=== PATIENT | male | born 1975 | race Caucasian/White ===

== ENCOUNTER 2024-04-21 19:06 | Observation (INO) | payer OTHER, SELFPAY ==
[2024-04-21 19:31] VITALS: BP 122/75; PULSE 73; RESP 16; TEMP 36.6; O2SAT 97; BMI 33.3
[2024-04-21 21:14] LABS: Basophils % 0.2 %; Eosinophils % 0.1 %; Hematocrit 44.8 % (37-53); Mean Corpuscular HGB Conc 33.9 g/dL (30-55); Mean Corpuscular Hemoglobin 30.6 pg (27-33); Mean Corpuscular Volume 90.3 fl (82-101); Mean Platelet Volume 9.3 fL (7.4-10.4); Monocytes # 0.5 10^3/uL (0.2-0.9); Monocytes % 5.8 %; Neutrophils # 7.11 10^3/uL (1.8-7.7); Neutrophils % 81.8 %; Nucleated Red Blood Cells % 0 %; Platelet Count 296 10^3/cmm (157-399); Red Blood Count 4.96 10^6/uL (3.85-5.65); Red Cell Distribution Width 12.7 % (12.1-15.1); White Blood Count 8.69 10^3/uL (3.29-11.43)
[2024-04-21 21:15] VITALS: BP 125/84; PULSE 66; RESP 18; O2SAT 97
--- NOTE | 2024-04-21 21:25 | CTR_ITS ---
PROCEDURE INFORMATION: Exam: CTA Head With Contrast, Arteriography Exam date and time: 04/21/2024 9:49 PM Age: 48 years old Clinical indication: Vertigo; Additional info: Dizzy TECHNIQUE: Imaging protocol: Computed tomographic angiography of the head with contrast. Exam focused on the arteries. 3D rendering (Not supervised by radiologist): MIP and/or 3D reconstructed images were created by the technologist. Radiation optimization: All CT scans at this facility use at least one of these dose optimization techniques: automated exposure control; mA and/or kV adjustment per patient size (includes targeted exams where dose is matched to clinical indication); or iterative reconstruction. Contrast material: [id number]; Contrast volume: 100 ml; Contrast route: INTRAVENOUS (IV); COMPARISON: CT head wo con* [id number] 04/21/2024 9:49 PM RADIATION DOSE METRICS: Total DLP (mGy-cm): 451.5 FINDINGS: ANTERIOR CIRCULATION: Right internal carotid artery: Intracranial segment is patent with no significant stenosis. No aneurysm. Right middle cerebral artery: No occlusion or significant stenosis. No aneurysm. Right anterior cerebral artery: No occlusion or significant stenosis. No aneurysm. Left internal carotid artery: Intracranial segment is patent with no significant stenosis. No aneurysm. Left middle cerebral artery: No occlusion or significant stenosis. No aneurysm. Left anterior cerebral artery: No occlusion or significant stenosis. No aneurysm. POSTERIOR CIRCULATION: Right vertebral artery: No occlusion or significant stenosis. No aneurysm. Left vertebral artery: No occlusion or significant stenosis. No aneurysm. Basilar artery: No occlusion or significant stenosis. No aneurysm. Right posterior cerebral artery: No occlusion or significant stenosis. No aneurysm. Left posterior cerebral artery: No occlusion or significant stenosis. No aneurysm. Brain: No definite mass, mass effect, or midline shift. Cerebral ventricles: No ventriculomegaly. Bones/joints: Unremarkable. No acute fracture. Soft tissues: Unremarkable. PROCEDURE INFORMATION: Exam: CTA Neck With Contrast Exam date and time: 04/21/2024 9:49 PM Age: 48 years old Clinical indication: Vertigo; Additional info: Dizzy TECHNIQUE: Imaging protocol: Computed tomographic angiography of the neck with contrast. Exam focused on the cervical segments of the vasculature. 3D rendering (Not supervised by radiologist): MIP and/or 3D reconstructed images were created by the technologist. Radiation optimization: All CT scans at this facility use at least one of these dose optimization techniques: automated exposure control; mA and/or kV adjustment per patient size (includes targeted exams where dose is matched to clinical indication); or iterative reconstruction. Contrast material: [id number]; Contrast volume: 100 ml; Contrast route: INTRAVENOUS (IV); COMPARISON: CT head wo con* [id number] 04/21/2024 9:49 PM RADIATION DOSE METRICS: Total DLP (mGy-cm): 0 FINDINGS: Right common carotid artery: No stenosis. No dissection or occlusion. Right internal carotid artery: No stenosis of the extracranial segment. No dissection or occlusion. Right external carotid artery: No occlusion or stenosis of the origin. Left common carotid artery: No stenosis. No dissection or occlusion. Left internal carotid artery: No stenosis of the extracranial segment. No dissection or occlusion. Left external carotid artery: No occlusion or stenosis of the origin. Right vertebral artery: No stenosis. No dissection or occlusion. Left vertebral artery: No stenosis. No dissection or occlusion. Soft tissues: Normal. No significant soft tissue swelling. Bones/joints: No acute fracture. CT/CT angio headneck* [id number] IMPRESSION: No large vessel stenosis or occlusion. IMPRESSION: No stenosis or occlusion. REFERENCES: NASCET CRITERIA. The degree of stenosis in the cervical segment of the internal carotid artery is based on NASCET criteria. Normal is no stenosis. Mild is less than 50% stenosis. Moderate is 50-69% stenosis. Severe is 70% to 99% stenosis. Total occlusion is no detectable patent lumen.
--- NOTE | 2024-04-21 21:26 | CTR_ITS ---
PROCEDURE INFORMATION: Exam: CT Head Without Contrast Exam date and time: 04/21/2024 9:49 PM Age: 48 years old Clinical indication: Dizziness; Additional info: Dizzy TECHNIQUE: Imaging protocol: Computed tomography of the head without contrast. Radiation optimization: All CT scans at this facility use at least one of these dose optimization techniques: automated exposure control; mA and/or kV adjustment per patient size (includes targeted exams where dose is matched to clinical indication); or iterative reconstruction. COMPARISON: CT angio headneck* [id number] 04/21/2024 9:49 PM RADIATION DOSE METRICS: Total DLP (mGy-cm): 1121.89 FINDINGS: Brain: No hemorrhage. No mass effect or midline shift. No acute transcortical infarct. Cerebral ventricles: No ventriculomegaly. Paranasal sinuses: Visualized sinuses are unremarkable. No fluid levels. Mastoid air cells: Visualized mastoid air cells are well aerated. Bones: Unremarkable. No acute fracture. Soft tissues: Unremarkable. CT/CT head wo con* [id number] IMPRESSION: No acute intracranial findings.
[2024-04-21 21:36] LABS: Alanine Aminotransferase 36 U/L (0-41); Albumin Level 4.6 g/dL (3.5-5.2); Alkaline Phosphatase 60 U/L (40-130); Anion Gap 13.7 (5-19); Aspartate Amino Transferase 22 U/L (0-40); Blood Urea Nitrogen 12 mg/dL (6-20); Calcium 8.9 mg/dL (8.5-10.5); Carbon Dioxide 25 mmol/L (22-29); Chloride 99 mmol/L (98-107); Creatinine Clr Calc Pharmacy 130.6914; Globulin 2.8 g/dL (1.3-4.6); Glomerular Filtration Rate 119.4 mL/min (90-130); Glucose 122 mg/dL (65-115); Osmolality Calculated 279 mOsm/kg (285-295); Potassium 3.7 mmol/L (3.5-5.1); Sodium 134 mmol/L (136-145); Total Bilirubin 0.5 mg/dL (0.15-1.2); Total Protein 7.4 g/dL (6.6-8.7)
[2024-04-21 21:43] LABS: INR 0.89 (0.8-1.2); Partial Thromboplastin Time 21.4 SECONDS (23.9-36.7)
[2024-04-21] MEDS: iohexol 350 mg/mL 500 mL Btl (per mL) IV (21:50)
[2024-04-21] MEDS: LORazepam 2 mg/mL INJ 1 mL 1.5 MG IVP (22:00)
[2024-04-21 22:01] VITALS: BP 148/89; PULSE 76; RESP 18; O2SAT 98
[2024-04-21] MEDS: sodium chloride 0.9% 1,000 ML 999 ML IV (22:26)
[2024-04-21 22:30] VITALS: BP 117/81; PULSE 70; O2SAT 97
[2024-04-21 23:53] LABS: Bacteria Urine None Seen /hpf; Hyaline Casts Urine 0-4 /lpf; RBC Urine 0-2 /hpf (0-2); Squamous Epithelial Cell Urine 0-5 /hpf (0-5); WBC Urine 0-5 /hpf (0-5)
[2024-04-22] VITALS (16 sets, daily range): BP systolic 114–144; BP diastolic 70–90; PULSE 62–113; RESP 16–19; TEMP 36.4–36.8; O2SAT 90–98
[2024-04-22 00:14] LABS: Urine Appearance Clear (CLEAR); Urine Color Yellow (Yellow); pH Urine 7 (5-7)
[2024-04-22 00:15] LABS: Add Urine Culture? No; Add Urine Microscopic? YES; Bilirubin Urine Neg (Negative); Blood Urine Neg (Negative); Glucose Urine UA Norm (Normal); Ketones Urine Negative (Negative); Leukocyte Esterase Urine Negative (Negative); Nitrate Urine Negative (Negative); Protein Urine Neg (Negative); Specific Gravity, Urine 1.066 (1.005-1.030)
[2024-04-22] MEDS: aspirin 325 mg Tablet 162 MG PO (01:10)
--- NOTE | 2024-04-22 01:15 | P.HP_ITS ---
Providers/Chief Complaint 2 Chief Complaint: Dizzy\V History of Present Illness 48-year-old gentleman with history of hypertension, hyperlipidemia, occasionally smoking cigar, overweight, with cardiovascular history in his father, reporting night before last at 2 AM in the morning on 04/21 after getting up to the restroom he had developed the sensation of everything spinning around him, has been nauseated due to this, is also had inability to ambulate. Denies any prior such episodes. Denies any fever chills, no respiratory or other symptoms. No ear pain drainage, hearing loss or tinnitus. Review of Systems 2 Const: Denies: fever(s), chills, body aches or malaise ENMT: Denies: throat pain, oral sores or ear or mastoid pain Card: Denies: chest pain, edema, pre-syncope or dyspnea on exertion Resp: Denies: dyspnea, productive cough, change in phlegm color or hemoptysis GI: Denies: abdominal pain, nausea, vomiting, diarrhea, constipation, hematochezia or melena : Denies: flank pain, difficulty urinating, urinary frequency or hematuria Musc: Denies: back pain, joint swelling or joint redness Skin/Breast: Denies: rash or new lesions Neuro: Denies: headache(s), numbness in extremities, weakness in extremities, dizziness, confusion or seizure-like activity Endo: Denies: polyuria or polydipsia Medications/Allergies Home Medications Medication Instructions Recorded Confirmed Last Taken Type fenofibrate 54 mg tablet 54 mg PO DAILY 04/22/24 04/22/24 Unknown History losartan 50 mg tablet 50 mg PO DAILY 04/22/24 04/22/24 Unknown History lovastatin 40 mg tablet 40 mg PO BEDTIME 04/22/24 04/22/24 Unknown History Allergies Allergy/AdvReac Type Severity Reaction Status Date / Time No Known Allergies Allergy Verified 04/21/24 19:38 PFSH Acute 2 PFSH: Medical History Dural tear HLD (hyperlipidemia) HTN (hypertension) Surgical History H/O Spinal surgery Social History Smoking and tobacco/nicotine status: current some day tobacco/nicotine user cigars Alcohol intake: current Alcohol intake frequency: few times a month Substance/Drug Use: never Vitals/I&O/Wt Last Vital Signs Temp 97.9 F 04/21/24 19:31 Pulse 76 04/21/24 22:01 Resp 18 04/21/24 22:01 BP 148/89 04/21/24 22:01 Pulse Ox 98 04/21/24 22:01 O2 Del Method Room Air 04/21/24 22:01 04/21/24 04/21/24 04/22/24 14:59 22:59 06:59 Intake Total 1000 / 1000 Balance 1000 / 1000 Weight last 48 hrs Weight 90.718 kg Physical Exam 2 Const: COMMON NORMALS: patient oriented x3 and alert GENERAL APPEARANCE: c ooperative ORIENTATION/CONSCIOUSNESS: Yes awake HENMT: COMMON NORMALS: oropharynx normal Neck/C-Spine: COMMON NORMALS: no JVD Resp: COMMON NORMALS: normal respiratory effort and clear to auscultation bilaterally AUSCULTATION: clear to auscultation bilaterally Cardio: COMMON NORMALS: no JVD, regular rhythm, S1 normal heart sound present, S2 normal heart sound present and No murmurs present (Cardio) RHYTHM: regular rhythm HEART SOUNDS: S1 normal heart sound present and S2 normal heart sound present GI: COMMON NORMALS: Normal to inspection, nondistended, normoactive bowel sounds present, Soft to palpation and non-tender PALPATION: Yes Soft to palpation Extremity: COMMON NORMALS: no joint enlargement and no pedal edema Neuro: COMMON NORMALS: patient oriented x3 and moves all extremities S ENSORIUM/ORIENTATION: Yes alert OTHER: He is awake, alert, following directions, no dysarthria or aphasia. No facial droop. No difficulties with horizontal tracking. Denies vertigo on extremes of gaze. No difficulty with FNF. Visual edwards full confrontation, no visual extinction. Sensory exam symmetrical, without sensory extinction. No upper or lower extremity drift. I do not know what reversible nystagmus on exam. Head impulse test negative. Test of skew negative. Daniel[place]-Hallpike positive on the left. Skin: COMMON NORMALS: no rashes or lesions noted GENERAL SKIN EXAM: no rashes or lesions noted Data 04/21/24 21:03 04/21/24 21:03 A&P Assessment and plan (1) Vertigo: Vertigo since overnight last night at 2 AM on 04/21, no otic complaints or symptoms. No sign of acute infection. Reviewed vitals, CBC, INR, CMP, UA, head CT, CTA head neck, ER note, discussed with ER provider. He does have risk factors of CVA including hypertension, hyperlipidemia, smokes cigars, overweight. On neurologic examination no other focal abnormalities, negative test of skew, head impulse, I do not note reversible nystagmus. Does appear to have positive [place]-Hallpike on the left. Possible BPPV, however, with risk factors of CVA would benefit from assessment by MRI to exclude posterior circulation CVA. Requested. He has had quite a bit of difficulty with ambulation requiring two-person assist this evening on attempt. If symptoms not improving may require to stay till Tuesday for PT assessment and repositioning maneuvers. Otherwise if MRI can be obtained and without acute CVA likely can discharge home with outpatient follow- up. Continue statin. For now started on aspirin. In case of finding of CVA would need additional workup for further risk factors. (2) Cardiovascular risk factor: Including hypertension, hyperlipidemia, overweight, smoking cigars. Plan HTN: Monitor blood pressure, continue losartan HLD: Continue lovastatin, fenofibrate Smoking: Cigars. Encourage cessation. Overweight: Would benefit from lifestyle modification and follow-up with PCP. Attestations 2 Medical Necessity Statement*: Place in observation for additional assessment management of severely symptomatic vertigo, unable to ambulate requiring two-person assist, further assessment for possible posterior circulation CVA due to risk factors. and High MDM includes number and complexity of problems actively addressed during encounter and amount and/or complexity of data reviewed/ordered [ previous or external records, resulted lab(s)/test(s), ordered lab(s)/test(s) and other healthcare professional discussion] as documented Diagnoses Vertigo R42 Cardiovascular risk factor Z91.89
--- NOTE | 2024-04-22 01:44 | MRR_ITS ---
PROCEDURE INFORMATION: Exam: MR Head Without Contrast Exam date and time: 04/22/2024 8:35 AM Age: 48 years old Clinical indication: Dizziness and other: Vomiting; Patient HX: HX of lumbar fusion with dural tear 2011; Additional info: Assess for post circ CVA TECHNIQUE: Imaging protocol: Magnetic resonance imaging of the head without contrast. COMPARISON: CT angio headneck* [id number] 04/21/2024 9:49 PM FINDINGS: Brain: Normal. No acute infarct. No hemorrhage. No significant white matter disease. No edema. Cerebral ventricles: Normal. No ventriculomegaly. Bones: Unremarkable. Paranasal sinuses: Normal as visualized. No acute sinusitis. Mastoid air cells: Normal as visualized. No mastoid effusion. Orbital cavities: Unremarkable. Soft tissues: Unremarkable. MR/MR head wo con* [id number] IMPRESSION: No acute findings.
[2024-04-22 02:02] LABS: Chol HDL Ratio 4.79 mg/dL (1.0-5.00); Cholesterol 182 mg/dL (0-200); HDL Cholesterol 38 mg/dL (60-100); LDL Cholesterol Calculated 108 mg/dL (50-129); LDL HDL Ratio 2.84 RATIO (0.00-3.22); Triglycerides 180 mg/dL (0-150)
[2024-04-22 02:05] LABS: Estmated Average Glucose 120; Hemoglobin A1C 5.8 % (4.0-6.0)
[2024-04-22] MEDS: enoxaparin 40 mg/0.4 mL Syringe SUBCUT (02:16)
--- NOTE | 2024-04-22 07:17 | W.ED.DIZZY ---
HPI - Dizziness General: Chief Complaint: Dizziness Stated Complaint: Dizzy\V\ Time Seen by Provider: 04/21/24 21:08 History of Present Illness: HPI Narrative: 48-year-old male who awoke around 2 or 3 AM in the morning with vertiginous symptoms while getting up to urinate. They seem to improve after he laid back down. He developed them all day, though, whenever he change position. As long as he lies flat, he has essentially no symptoms. With movement, especially getting up, he has significant vertigo. He does not describe this as a nearly passing out episode, but more room spinning dizziness with nausea and vomiting that is significantly severe. Related Data Home Medications Medication Instructions Recorded Confirmed fenofibrate 54 mg tablet 54 mg PO DAILY 04/22/24 04/22/24 losartan 50 mg tablet 50 mg PO DAILY 04/22/24 04/22/24 lovastatin 40 mg tablet 40 mg PO BEDTIME 04/22/24 04/22/24 Allergies Allergy/AdvReac Type Severity Reaction Status Date / Time No Known Allergies Allergy Verified 04/21/24 19:38 [facility] PFSH: Medical History Dural tear HLD (hyperlipidemia) HTN (hypertension) Surgical History H/O Spinal surgery Social History Smoking and tobacco/nicotine status: current some day tobacco/nicotine user cigars Alcohol intake: current Alcohol intake frequency: few times a month Substance/Drug Use: never Physical Exam Const: COMMON NORMALS: no acute distress, patient oriented x3 and alert GENERAL APPEARANCE: cooperative; not ill appearing and not frail appearing HENMT: COMMON NORMALS: normocephalic, atraumatic and Normal external nose present HEAD & SCALP: normocephalic and atraumatic FACE & SINUS: normal facial exam and face symmetric NOSE: Normal external nose present Eye: COMMON NORMALS: Equal, round and reactive pupils present and EOMs intact bilaterally PUPIL: Yes Equal, round and reactive pupils present Neck/C-Spine: GENERAL: Yes trachea midline Chest: CHEST: Yes Symmetrical chest wall rise Resp: COMMON NORMALS: normal respiratory effort, No retractions, No use of accessory muscles and clear to auscultation bilaterally AUSCULTATION: clear to auscultation bilaterally Cardio: COMMON NORMALS: regular rate and regular rhythm RATE: regular rate RHYTHM: regular rhythm GI: COMMON NORMALS: Normal to inspection, nondistended, normoactive bowel sounds present Extremity: COMMON NORMALS: no pedal edema Neuro: CAROL COMA SCALE: document GCS findings Carol coma scale eye opening: Spontaneous [place] coma scale verbal response: Orientated Carol coma scale motor response: Obey commands [place] coma scale total score: 15 COMMON NORMALS: patient oriented x3 SENSORIUM/ORIENTATION: Yes alert CRANIAL NERVES: Yes CN normal except as noted COORDINATION/BALANCE: epiodl-nf-deai test normal, jorl-mx-svpc test normal and sways with eyes open SPEECH: speech normal GAIT: Yes Ataxic gait present SENSORY EXAM: Yes extremities (intact) MOTOR EXAM: Pronator motor function not present, no tremor noted and Normal motor muscle tone present throughout COORDINATION: [id number]-js-[id number] test normal and zrmk-qd-azia test normal Psych: COMMON NORMALS: speech normal SPEECH: Yes normal speech Skin: COMMON NORMALS: no rashes or lesions noted GENERAL SKIN EXAM: no rashes or lesions noted Course Vital Signs: Vital signs: Vital Signs Temperature 98.0 F 04/22/24 15:41 Pulse Rate 77 04/22/24 15:42 Respiratory Rate 18 04/22/24 15:41 Blood Pressure 114/70 04/22/24 15:42 Pulse Oximetry 95 04/22/24 15:41 Oxygen Delivery Me thod Room Air 04/22/24 15:41 MDM - Dizziness Medical Decision Making Head CT with CTA were both negative. Ativan seemed to help his symptoms some. His other laboratory is not remarkable. When trying to walk the patient, he became quite dizzy with vertigo symptoms, and had to sit back down. Because of this, we will observe the patient. Spoke with the hospitalist, he recommends MRI of possible, continued fluid support, etc. Will see the patient. Lab Data 04/21/24 21:03 04/21/24 21:03 Radiology Impressions Head/Neck CTA 04/21/24 21:25 IMPRESSION: No large vessel stenosis or occlusion. IMPRESSION: No stenosis or occlusion. REFERENCES: NASCET CRITERIA. The degree of stenosis in the cervical segment of the internal carotid artery is based on NASCET criteria. Normal is no stenosis. Mild is less than 50% stenosis. Moderate is 50-69% stenosis. Severe is 70% to 99% stenosis. Total occlusion is no detectable patent lumen. Head CT 04/21/24 21:26 IMPRESSION: No acute intracranial findings. Head MRI 04/22/24 01:44 IMPRESSION: No acute findings. Laboratory Results WBC 8.69 10^3/uL (3.29-11.43) 04/21/24 21:03 RBC 4.96 10^6/uL (3.85-5.65) 04/21/24 21:03 Hgb 15.20 g/dL (11.27-16.99) 04/21/24 21:03 Hct 44.8 % (37-53) 04/21/24 21:03 MCV 90.3 fl (82-101) 04/21/24 21:03 MCH 30.6 pg (27-33) 04/21/24 21:03 MCHC 33.9 g/dL (30-55) 04/21/24 21:03 RDW 12.7 % (12.1-15.1) 04/21/24 21:03 Plt Count 296 10^3/cmm (157-399) 04/21/24 21:03 MPV 9.3 fL (7.4-10.4) 04/21/24 21:03 Neut % (Auto) 81.8 % 04/21/24 21:03 Lymph % (Auto) 12.0 % 04/21/24 21:03 Alfalfa % (Auto) 5.8 % 04/21/24 21:03 Eos % (Auto) 0.1 % 04/21/24 21:03 Baso % (Auto) 0.2 % 04/21/24 21:03 Neut # (Auto) 7.11 10^3/uL (1.8-7.7) 04/21/24 21:03 Lymph # (Auto) 1.0 10^3/uL (0.8-4.8) 04/21/24 21:03 Alfalfa # (Auto) 0.5 10^3/uL (0.2-0.9) 04/21/24 21:03 Eos # (Auto) 0.0 10^3/uL (0.0-0.8) 04/21/24 21:03 Baso # (Auto) 0.0 10^3/uL (0.0-0.1) 04/21/24 21:03 Nucleated RBC % (auto) 0 % 04/21/24 21:03 Nucleated RBCs # 0.0 /100WBC 04/21/24 21:03 PT 12.30 SECONDS (12.1-14.9) 04/21/24 21:03 INR 0.89 (0.8-1.2) 04/21/24 21:03 APTT 21.4 SECONDS (23.9-36.7) L 04/21/24 21:03 Sodium 134 mmol/L (136-145) L 04/21/24 21:03 Potassium 3.7 mmol/L (3.5-5.1) 04/21/24 21:03 Chloride 99 mmol/L (98-107) 04/21/24 21:03 Carbon Dioxide 25 mmol/L (22-29) 04/21/24 21:03 Anion Gap 13.7 (5-19) 04/21/24 21:03 BUN 12 mg/dL (6-20) 04/21/24 21:03 Creatinine 0.7 mg/dL (0.7-1.2) 04/21/24 21:03 GFR Calculation 119.4 mL/min (90-130) 04/21/24 21:03 Glucose 122 mg/dL (65-115) H 04/21/24 21:03 Estimat Average Glucose 120 04/21/24 21:03 Hemoglobin A1c 5.8 % (4.0-6.0) 04/21/24 21:03 Calculated Osmolality 279 mOsm/kg (285-295) L 04/21/24 21:03 Calcium 8.9 mg/dL (8.5-10.5) 04/21/24 21:03 Total Bilirubin 0.5 mg/dL (0.15-1.2) 04/21/24 21:03 AST 22 U/L (0-40) 04/21/24 21:03 ALT 36 U/L (0-41) 04/21/24 21:03 Alkaline Phosphatase 60 U/L (40-130) 04/21/24 21:03 Total Protein 7.4 g/dL (6.6-8.7) 04/21/24 21:03 Albumin 4.6 g/dL (3.5-5.2) 04/21/24 21:03 Globulin 2.8 g/dL (1.3-4.6) 04/21/24 21:03 Triglycerides 180 mg/dL (0-150) H 04/21/24 21:03 Cholesterol 182 mg/dL (0-200) 04/21/24 21:03 LDL Cholesterol, Calc 108 mg/dL (50-129) 04/21/24 21:03 HDL Cholesterol 38 mg/dL (60-100) L 04/21/24 21:03 LDL/HDL Ratio 2.84 RATIO (0.00-3.22) 04/21/24 21:03 Cholesterol/HDL Ratio 4.79 mg/dL (1.0-5.00) 04/21/24 21:03 Urine Color Yellow (Yellow) 04/21/24 23:24 Urine Appearance Clear (CLEAR) 04/21/24 23:24 Urine pH 7 (5-7) 04/21/24 23:24 Ur Specific [place] 1.066 (1.005-1.030) H 04/21/24 23:24 Urine Protein Neg (Negative) 04/21/24 23:24 Urine Glucose (UA) Norm (Normal) 04/21/24 23:24 Urine Ketones Negative (Negative) 04/21/24 23:24 Urine Blood Neg (Negative) 04/21/24 23:24 Urine Nitrate Negative (Negative) 04/21/24 23:24 Urine Bilirubin Neg (Negative) 04/21/24 23:24 Urine Urobilinogen 1.0 mg/dL (Negative) 04/21/24 23:24 Ur Leukocyte Esterase Negative (Negative) 04/21/24 23:24 Urine RBC 0-2 /hpf (0-2) 04/21/24 23:24 Urine WBC 0-5 /hpf (0-5) 04/21/24 23:24 Ur Squamous Epith Cells 0-5 /hpf (0-5) 04/21/24 23:24 Amorphous Sediment Not Reportable 04/21/24 23:24 Urine Bacteria None seen /hpf (NONE) 04/21/24 23:24 Hyaline Casts 0-4 /lpf H 04/21/24 23:24 All radiology interpretation(s) finalized by discharge Discharge Plan Discharge Patient Disposition: Admitted As Inpatient Admit Provider: Ronald Harrington Clinical Impression: Vertigo Condition: Stable Coding Level of Care Code ED Rubber Flap Tuber Machine Operator for Jacob John
[2024-04-22] MEDS: fenofibrate 48 mg Tablet PO (09:07)
[2024-04-22] MEDS: losartan 50 mg Tablet PO (09:07)
[2024-04-22] MEDS: aspirin 81 mg EC Tablet 162 MG PO (09:08)
--- NOTE | 2024-04-22 10:33 | USCV_ITS ---
Marcelino Bhakta Age: 48 Gender: M : 1975 Exam Date: 04/22/2024 18:05 Ordering Phys: Mina Santamaria MD Technologist: Arslan Preston [place] [facility] [place]: cva BP: 114 / 70 HR: Rhythm: Sinus Technical Quality: Adequate MEASUREMENTS (Male / Female) Normal Values 2D ECHO LV Diastolic Diameter PLAX 4.6 cm 4.2 - 5.9 / 3.9 - 5.3 cm IVS Diastolic Thickness 1.2 cm 0.6 - 1.0 / 0.6 - 0.9 cm IVS Systolic Thickness 1.8 cm LVPW Diastolic Thickness 1.8 cm 0.6 - 1.0 / 0.6 - 0.9 cm LVPW Systolic Thickness 1.5 cm LVOT Diameter 2.0 cm LV Ejection Fraction 2D Teich 82.7 % LV Ejection Fraction MOD 4C 65.3 % LV Ejection Fraction MOD 2C 72.3 % LV Ejection Fraction 2C AL 71.2 % LA Diameter 3.4 cm RA Systolic Volume 4C AL 24.8 ml RA Systolic Volume 4C MOD 24.7 ml LA Sys Volume AL 35.1 cm cubed LA Sys Volume Index AL 16.6 cm cubed/m squared Aorta at Sinotubular Diameter 2.4 cm IVC Diameter 2.0 cm M-MODE LA Ao Ratio MM 1.1 AV Cusp Separation MM 1.8 cm FINDINGS Left Ventricle Left ventricle is normal size. LV systolic function is normal with EF 55 to 60%. No regional wall motion abnormalities are seen. Right Ventricle Normal in size and function Right Atrium Normal in size Left Atrium Normal in size Mitral Valve Structurally normal mitral valve. Aortic Valve Aortic valve is thickened. Tricuspid Valve Grossly normal Pulmonic Valve Not well visualized Pericardium Normal Aorta Normal in size IVC Appears to be normal CONCLUSIONS LV systolic function is normal with EF of 55-60% Bubble study is of limited quality because of imaging quality. Grossly no significant intracardiac shunting seen. Andrés Nunez MD (Electronically Signed) Final Date: 23 April 2024 18:00 S
--- NOTE | 2024-04-22 15:23 | P.PN_ITS ---
Subjective 2 Subjective: Patient was seen this morning, he is alert oriented x 3, following all commands, he really denies any significant dizziness with changing head position it is more dizziness when getting up and ambulating, he tells me he is quite unsteady on his feet, he tells me that last night, when he tried to get up out of bed he was very unsteady on his feet, leaning more towards the right, stumbling, felt very off balance did report more dizziness than vertigo, felt nauseous, had episodes of vomiting, no fevers, chills, denies ear ringing, does report recent history of issues with high blood pressure Vitals/I&O/Wt Last Vital Signs Temp 98.1 F 04/22/24 11:23 Pulse 90 04/22/24 11:58 Resp 17 04/22/24 11:23 BP 119/75 04/22/24 11:58 Pulse Ox 95 04/22/24 11:23 O2 Del Method Room Air 04/22/24 11:23 04/22/24 04/22/24 04/22/24 06:59 14:59 22:59 Intake Total 1240 / 1240 480 / 480 Balance 1240 / 1240 480 / 480 Weight last 48 hrs Weight 93.939 kg Weight 90.804 kg Weight 90.718 kg Physical Exam 2 Const: COMMON NORMALS: no acute distress and patient oriented x3 O RIENTATION/CONSCIOUSNESS: Yes awake, Yes oriented to person, Yes oriented to place and Yes oriented to time Eye: COMMON NORMALS: Equal, round and reactive pupils present and EOMs intact bilaterally PUPIL: Yes Equal, round and reactive pupils present Resp: COMMON NORMALS: normal respiratory effort, No retractions, No use of accessory muscles and clear to auscultation bilaterally AUSCULTATION: clear to auscultation bilaterally Cardio: COMMON NORMALS: regular rate, regular rhythm, S1 normal heart sound present and S2 normal heart sound present RATE: regular rate RHYTHM: r egular rhythm HEART SOUNDS: S1 normal heart sound present and S2 normal heart sound present GI: COMMON NORMALS: Normal to inspection, nondistended, normoactive bowel sounds present and non-tender Extremity: COMMON NORMALS: no pedal edema Neuro: COMMON NORMALS: patient oriented x3, CN's II-XII intact bilaterally, moves all extremities, no focal motor deficits and no sensory deficits noted SENSORIUM/ORIENTATION: Yes oriented to person, Yes oriented to place and Yes oriented to time OTHER: Creatinine was abnormal on the right, Upon standing, tends to lean towards the right, does report unsteadiness Psych: COMMON NORMALS: mental status grossly normal Data 04/21/24 21:03 04/21/24 21:03 A&P Assessment and plan (1) Cardiovascular risk factor: Including hypertension, hyperlipidemia, overweight, smoking cigars. (2) Dizziness: - Does have features of benign positional vertigo -But given his sudden onset of symptoms, his positive cerebellar signs, he is unsteadiness with ambulation, highly suspicious for posterior circulation stroke -CT head no acute findings -CTA head and neck, no large vessel occlusion or stenosis -MRI brain no acute findings -No sniffing electrolyte abnormalities -Telemetry monitoring -Cardiac echo bubble study -Will continue to monitor ins patient -IV fluids -Permissive hypertension -Continue aspirin, statin -PT OT Plan HTN: Monitor blood pressure, continue losartan HLD: Continue lovastatin, fenofibrate Smoking: Cigars. Encourage cessation. Overweight: Would benefit from lifestyle modification and follow-up with PCP. Attestations 2 Medical Necessity Statement*: Patient requires hospitalization, inpatient, greater than 2 minutes, for concerns for posterior circulation stroke Diagnoses Cardiovascular risk factor Z91.89 Dizziness R42
[2024-04-22] MEDS: sodium chloride 0.9% 1,000 ML 75 ML IV (15:33)
[2024-04-22] MEDS: atorvastatin 40 mg Tablet 20 MG PO (20:09)
[2024-04-23] VITALS (7 sets, daily range): BP systolic 116–149; BP diastolic 71–90; PULSE 58–78; RESP 16–19; TEMP 36.6–36.7; O2SAT 94–97
[2024-04-23] MEDS: enoxaparin 40 mg/0.4 mL Syringe SUBCUT (01:21)
[2024-04-23] MEDS: sodium chloride 0.9% 1,000 ML 75 ML IV (04:28)
[2024-04-23 04:37] LABS: Basophils # 0.1 10^3/uL (0.0-0.1); Basophils % 0.9 %; Eosinophils # 0.1 10^3/uL (0.0-0.8); Lymphocytes # 2.3 10^3/uL (0.8-4.8); Lymphocytes % 38.4 %; Mean Corpuscular HGB Conc 33.6 g/dL (30-55); Mean Corpuscular Hemoglobin 30.8 pg (27-33); Mean Corpuscular Volume 91.8 fl (82-101); Mean Platelet Volume 9.5 fL (7.4-10.4); Monocytes # 0.5 10^3/uL (0.2-0.9); Neutrophils # 2.97 10^3/uL (1.8-7.7); Neutrophils % 50.5 %; Nucleated Red Blood Cells % 0 %; Platelet Count 258 10^3/cmm (157-399); Red Blood Count 4.25 10^6/uL (3.85-5.65); Red Cell Distribution Width 12.8 % (12.1-15.1); White Blood Count 5.88 10^3/uL (3.29-11.43)
[2024-04-23 04:51] LABS: Estmated Average Glucose 114; Hemoglobin A1C 5.6 % (4.0-6.0)
[2024-04-23 04:58] LABS: Anion Gap 10.7 (5-19); Blood Urea Nitrogen 12 mg/dL (6-20); Calcium 8.4 mg/dL (8.5-10.5); Carbon Dioxide 24 mmol/L (22-29); Chloride 105 mmol/L (98-107); Chol HDL Ratio 5.06 mg/dL (1.0-5.00); Cholesterol 167 mg/dL (0-200); Creatinine Clr Calc Pharmacy 133.3164; Glomerular Filtration Rate 119.4 mL/min (90-130); Glucose 103 mg/dL (65-115); HDL Cholesterol 33 mg/dL (60-100); LDL Cholesterol Calculated 92 mg/dL (50-129); LDL HDL Ratio 2.79 RATIO (0.00-3.22); Osmolality Calculated 282 mOsm/kg (285-295); Potassium 3.7 mmol/L (3.5-5.1); Sodium 136 mmol/L (136-145); Triglycerides 208 mg/dL (0-150)
[2024-04-23] MEDS: fenofibrate 48 mg Tablet PO (08:38)
[2024-04-23] MEDS: aspirin 81 mg EC Tablet 162 MG PO (08:38)
[2024-04-23] MEDS: losartan 50 mg Tablet PO (08:38)
--- NOTE | 2024-04-23 10:48 | P.DS_ITS ---
Discharge Providers Date of Admission: 04/22/24 01:04 Date of Discharge: April 23, 2024 Attending Provider at Admission: Ronald Harrington Attending Provider at Discharge: Mina Santamaria MD Diagnoses at Discharge Discharge Diagnosis (1) Cardiovascular risk factor: Status: Acute (2) Dizziness: Status: Acute Reason for Visit Reason for Visit: Dizzy\V Hospital Course Hospital Course This is a 48-year-old male with a past medical history of hypertension hyperlipidemia, obesity, who presents [facility] due to sudden onset dizziness Patient was admitted for dizziness, unsteadiness, highly suspicious for posterior circulation stroke Dizziness: - Does have features of benign positional vertigo, although no significant symptoms when changing head position -But given his sudden onset of symptoms, his positive cerebellar signs, he is unsteadiness with ambulation, highly suspicious for posterior circulation stroke -CT head no acute findings -CTA head and neck, no large vessel occlusion or stenosis -MRI brain no acute findings -No significant electrolyte abnormalities -Was monitored as inpatient on aspirin, statin, IV fluids, overall his symptomatology improved, continues to have intermittent episodes of unsteadiness, when ambulating, but overall significantly improved -Will discharge him on aspirin, statin, with a close follow-up with neurology as outpatient -Discharged with event monitor with a follow-up with cardiology as outpatient -Advised on to lifestyle modifications, stop smoking -If you were to have any recurrent strokelike symptoms to immediately call 911 Physical Exam Const: COMMON NORMALS: no acute distress and patient oriented x3 Resp: COMMON NORMALS: normal respiratory effort, No retractions, No use of accessory muscles and clear to auscultation bilaterally AUSCULTATION: clear to auscultation bilaterally Cardio: COMMON NORMALS: regular rate, regular rhythm, S1 normal heart sound present and S2 normal heart sound present RATE: regular rate RHYTHM: regular rhythm HEART SOUNDS: S1 normal heart sound present and S2 normal heart sound present GI: COMMON NORMALS: Normal to inspection, nondistended, normoactive bowel sounds present and non-tender Extremity: COMMON NORMALS: no pedal edema Neuro: COMMON NORMALS: patient oriented x3, CN's II-XII intact bilaterally, moves all extremities, no focal motor deficits and no sensory deficits noted Psych: COMMON NORMALS: mental status grossly normal Discharge Data Studies Completed and Pending Completed Studies During Hospitalization Category Date Time Status CT head wo con* [id number] Stat Cat Scan 04/21/24 21:26 Completed CTA head neck [CT angio headneck* [id number]] Stat Cat Scan 04/21/24 21:25 Completed MR head wo con* [id number] Routine MRI 04/22/24 01:44 Completed Pending at discharge Category Date Time Status Basic Metabolic Panel AM LABS Lab 04/24/24 04:00 Ordered Basic Metabolic Panel AM LABS Lab 04/25/24 04:00 Ordered Complete Blood Count w/Auto AM LABS Lab 04/24/24 04:00 Ordered Complete Blood Count w/Auto AM LABS Lab 04/25/24 04:00 Ordered CV. echo lmt wo/w bubble [id number] Routine Ultrasound 04/22/24 10:33 Taken Radiology Impressions Head/Neck CTA 04/21/24 21:25 IMPRESSION: No large vessel stenosis or occlusion. IMPRESSION: No stenosis or occlusion. REFERENCES: NASCET CRITERIA. The degree of stenosis in the cervical segment of the internal carotid artery is based on NASCET criteria. Normal is no stenosis. Mild is less than 50% stenosis. Moderate is 50-69% stenosis. Severe is 70% to 99% stenosis. Total occlusion is no detectable patent lumen. Head CT 04/21/24 21:26 IMPRESSION: No acute intracranial findings. Head MRI 04/22/24 01:44 IMPRESSION: No acute findings. Laboratory Results WBC 5.88 10^3/uL (3.29-11.43) 04/23/24 03:52 RBC 4.25 10^6/uL (3.85-5.65) 04/23/24 03:52 Hgb 13.10 g/dL (11.27-16.99) 04/23/24 03:52 Hct 39.0 % (37-53) 04/23/24 03:52 MCV 91.8 fl (82-101) 04/23/24 03:52 MCH 30.8 pg (27-33) 04/23/24 03:52 MCHC 33.6 g/dL (30-55) 04/23/24 03:52 RDW 12.8 % (12.1-15.1) 04/23/24 03:52 Plt Count 258 10^3/cmm (157-399) 04/23/24 03:52 MPV 9.5 fL (7.4-10.4) 04/23/24 03:52 Neut % (Auto) 50.5 % 04/23/24 03:52 Lymph % (Auto) 38.4 % 04/23/24 03:52 [place] % (Auto) 9.0 % 04/23/24 03:52 Eos % (Auto) 1.0 % 04/23/24 03:52 Baso % (Auto) 0.9 % 04/23/24 03:52 Neut # (Auto) 2.97 10^3/uL (1.8-7.7) 04/23/24 03:52 Lymph # (Auto) 2.3 10^3/uL (0.8-4.8) 04/23/24 03:52 [place] # (Auto) 0.5 10^3/uL (0.2-0.9) 04/23/24 03:52 Eos # (Auto) 0.1 10^3/uL (0.0-0.8) 04/23/24 03:52 Baso # (Auto) 0.1 10^3/uL (0.0-0.1) 04/23/24 03:52 Nucleated RBC % (auto) 0 % 04/23/24 03:52 Nucleated RBCs # 0.0 /100WBC 04/23/24 03:52 PT 12.30 SECONDS (12.1-14.9) 04/21/24 21:03 INR 0.89 (0.8-1.2) 04/21/24 21:03 APTT 21.4 SECONDS (23.9-36.7) L 04/21/24 21:03 Sodium 136 mmol/L (136-145) 04/23/24 03:52 Potassium 3.7 mmol/L (3.5-5.1) 04/23/24 03:52 Chloride 105 mmol/L (98-107) 04/23/24 03:52 Carbon Dioxide 24 mmol/L (22-29) 04/23/24 03:52 Anion Gap 10.7 (5-19) 04/23/24 03:52 BUN 12 mg/dL (6-20) 04/23/24 03:52 Creatinine 0.7 mg/dL (0.7-1.2) 04/23/24 03:52 GFR Calculation 119.4 mL/min (90-130) 04/23/24 03:52 Glucose 103 mg/dL (65-115) 04/23/24 03:52 Estimat Average Glucose 114 04/23/24 03:52 Hemoglobin A1c 5.6 % (4.0-6.0) 04/23/24 03:52 Calculated Osmolality 282 mOsm/kg (285-295) L 04/23/24 03:52 Calcium 8.4 mg/dL (8.5-10.5) L 04/23/24 03:52 Total Bilirubin 0.5 mg/dL (0.15-1.2) 04/21/24 21:03 AST 22 U/L (0-40) 04/21/24 21:03 ALT 36 U/L (0-41) 04/21/24 21:03 Alkaline Phosphatase 60 U/L (40-130) 04/21/24 21:03 Total Protein 7.4 g/dL (6.6-8.7) 04/21/24 21:03 Albumin 4.6 g/dL (3.5-5.2) 04/21/24 21:03 Globulin 2.8 g/dL (1.3-4.6) 04/21/24 21:03 Triglycerides 208 mg/dL (0-150) H 04/23/24 03:52 Cholesterol 167 mg/dL (0-200) 04/23/24 03:52 LDL Cholesterol, Calc 92 mg/dL (50-129) 04/23/24 03:52 HDL Cholesterol 33 mg/dL (60-100) L 04/23/24 03:52 LDL/HDL Ratio 2.79 RATIO (0.00-3.22) 04/23/24 03:52 Cholesterol/HDL Ratio 5.06 mg/dL (1.0-5.00) H 04/23/24 03:52 Urine Color Yellow (Yellow) 04/21/24 23:24 Urine Appearance Clear (CLEAR) 04/21/24 23:24 Urine pH 7 (5-7) 04/21/24 23:24 Ur Specific [place] 1.066 (1.005-1.030) H 04/21/24 23:24 Urine Protein Neg (Negative) 04/21/24 23:24 Urine Glucose (UA) Norm (Normal) 04/21/24 23:24 Urine Ketones Negative (Negative) 04/21/24 23:24 Urine Blood Neg (Negative) 04/21/24 23:24 Urine Nitrate Negative (Negative) 04/21/24 23:24 Urine Bilirubin Neg (Negative) 04/21/24 23:24 Urine Urobilinogen 1.0 mg/dL (Negative) 04/21/24 23:24 Ur Leukocyte Esterase Negative (Negative) 04/21/24 23:24 Urine RBC 0-2 /hpf (0-2) 04/21/24 23:24 Urine WBC 0-5 /hpf (0-5) 04/21/24 23:24 Ur Squamous Epith Cells 0-5 /hpf (0-5) 04/21/24 23:24 Amorphous Sediment Not Reportable 04/21/24 23:24 Urine Bacteria None seen /hpf (NONE) 04/21/24 23:24 Hyaline Casts 0-4 /lpf H 04/21/24 23:24 Vitals Last Vital Signs Temp 97.9 F 04/23/24 08:00 Pulse 77 04/23/24 08:00 Resp 16 04/23/24 08:00 BP 124/75 04/23/24 08:38 Pulse Ox 97 04/23/24 08:00 O2 Del Method Room Air 04/23/24 04:00 Discharge Plan Discharge Patient Disposition: Home Condition: Stable Prescriptions: New aspirin 81 mg Tablet,Delayed Release (Dr/Ec) 81 mg PO DAILY 30 Days Qty: 30 0RF Continued losartan 50 mg tablet 50 mg PO DAILY lovastatin 40 mg tablet 40 mg PO BEDTIME fenofibrate 54 mg tablet 54 mg PO DAILY Discharge Orders: Discharge Order (Routine); Ordered 04/23/24 Ordered By: Mina Santamaria Other Ambulatory Orders: MCT/Event Monitor 30 Days (Routine) Timeframe: 1 Day Facility: [facility] - Location: Radiology Ordered By: Mina Santamaria Referrals: Mali Hoover MD [Physician] - 1 week Baudilio Rausch MD [Referring] - 04/30/24 1:30 pm Andrés Nunez M.D [Physician] - 1 month Discharge Activity: Resume usual activity Patient Instructions: Opioid Safety Discharge Attestations Time Spent in Discharge Care*: greater than 30 min Time Spent in Smoking Cessation: 3 to 10 minutes Quality Metrics Clinical Quality Measures [ Cerebrovascular Accident { Contraindication to Antithrombotic: None; antithrombotic prescribed; Contraindication to Anticoagulation: Overlap treatment not indicated; Contraindication to Statin: None; Statin prescribed;}] Coding Level of Care Code 22482 Total time (in minutes) for Discharge: 45 Diagnoses Cardiovascular risk factor Z91.89 Dizziness R42
--- NOTE | 2024-04-23 12:05 | PC.OT ---
Pt seen for OT evaluation; pt is at high level of function and will perform evaluation if there is a decline in function.
== END 2024-04-23 13:30 | disposition home or self-care (01) ==
LOC: ER 21:08 → MEDSURG 04-22 01:17
PROVIDERS: Emergency Medicine; Admitting Provider Internal Medicine; Emergency Provider Emergency Medicine; Visit Provider Family Medicine
DX: R42 Dizziness and giddiness (principal); I10 Essential (primary) hypertension; E78.5 Hyperlipidemia, unspecified; E66.3 Overweight; Z68.34 Body mass index [BMI] 34.0-34.9, adult; Z79.899 Other long term (current) drug therapy; Z91.89 Other specified personal risk factors, not elsewhere classified; Z72.0 Tobacco use
CPT/HCPCS: 36415; 70450; 70496; 70498; 70551; 80048; 80053; 80061; 81001; 83036; 85025; 85610; 85730; 92523; 92610; 96372; 96374; 97112; 97161; 99285; C8924; G0378; J1650; J2060; J7030

== ENCOUNTER 2024-11-22 14:23 | Outpatient (RCR) | payer OTHER, SELFPAY | END 2024-11-23 09:08 | disposition home or self-care (01) | LOC: SPT 14:23 | PROVIDERS: Visit Provider Nurse Practitioner Family | DX: R42 Dizziness and giddiness (principal) | CPT/HCPCS: 97161 ==